=== PATIENT | male | born 1965 | race Two or more races ===

== ENCOUNTER 2016-07-09 16:43 | Emergency (ER) | payer SELFPAY ==
[~2016-07-09] VITALS: Ht 172.7 cm; Wt 72.6 kg
[2016-07-09 17:20] VITALS: BP 159/95
[2016-07-09 20:08] VITALS: BP 148/80
[2016-07-10 00:30] VITALS: BP 134/82
--- NOTE | 2016-07-10 12:32 | Emergency Room Report ---
History of Present Illness General Chief Complaint: Alcohol Intoxication Source: EMS Present Illness HPI The patient is a 51-year-old male BIBA for likely alcohol intoxication. Patient is unable to provide any information at this time. Per EMS, patient found asleep in parking lot Allergies: Coded Allergies: No Known Allergies (Unverified , 07/09/16) Patient History Past Medical History: see triage record Pertinent Family History: none Reviewed Nursing Documentation: PMH: Agreed, PSxH: Agreed Nursing Documentation-PMH Past Medical History: No Stated History Review of Systems All Other Systems: negative except mentioned in HPI Physical Exam Vital Signs Date Time Temp Pulse Resp B/P Pulse Ox O2 Delivery O2 Flow Rate FiO2 07/09/16 16:37 98.4 116 14 159/95 98 Room Air Sp02 EP Interpretation: reviewed, normal General Appearance: no apparent distress, alert, GCS 15, lethargic Head: normocephalic, atraumatic Eyes: bilateral eye PERRL, bilateral eye normal inspection ENT: normal pharynx, no angioedema Neck: full range of motion, supple/symm/no masses Respiratory: chest non-tender, lungs clear, normal breath sounds, no respiratory distress, no accessory muscle use, no wheezing Cardiovascular #1: regular rate, rhythm, no edema Gastrointestinal: normal bowel sounds, non tender, soft, non-distended, no guarding, no rebound Neurologic: responsive, motor strength/tone normal, normal gait - at time of DC Psychiatric: no suicidal/homicidal ideation, no delusions Skin: normal color, no rash, warm/dry, well hydrated Lymphatic: no adenopathy Medical Decision Making PA Attestation Dr. Greco is my supervising physician. Patient management was discussed with my supervising physician Diagnostic Impression: Primary Impression: Acute alcoholic intoxication ER Course The patient is a 51-year-old male BIBA for likely alcohol intoxication DDx considered but not limited to: acute alcohol intoxication, hepatic encephalopathy, drug overdose, hypoglycemia, psychosis Physical exam: Vitals are within normal limits. No apparent distress. Patient is lethargic. Head is normocephalic atraumatic. Pupils are equally round and reactive to light The patient is arousable by touch. Lungs are clear to auscultation bilaterally. No abnormal tenderness. Abdomen is soft. Otherwise exam is unremarkable The patient is given time to rest in the emergency department. Upon reevaluation, patient is to drinking beers. Patient is unable to say how many. The patient is able to ambulate well and is asking to leave at this time. The patient is alert and oriented. The patient be discharged home in your precautions are given. Patient was given advice on alcohol addiction Last Vital Signs Date Time Temp Pulse Resp B/P Pulse Ox O2 Delivery O2 Flow Rate FiO2 07/10/16 00:30 98.2 84 17 134/82 100 Room Air Status: improved Disposition: HOME, SELF-CARE Condition: Improved Referrals: NOT CHOSEN IPA/MD,REFERRING (PCP) Patient Instructions: Alcohol Use Disorder, Alcohol Intoxication Additional Instructions: My findings were discussed with the patient. Patient was counseled to seek help for alcohol abuse. Patient is stable for discharge, is alert and oriented, and can ambulate without difficulty. Patient is asked to return to ED if he experiences chest pain, abdominal pain, dizziness, falls down, or for any reason. LON ROSALES Jul 10, 2016 12:32
== END 2016-07-10 00:30 | disposition home or self-care (01) ==
LOC: EMR 17:23
DX: F10.129 Alcohol abuse with intoxication, unspecified (principal)
CPT/HCPCS: 99284